=== PATIENT | female | born 1995 | race Caucasian/White ===

== ENCOUNTER → 2019-11-27 13:08 | Outpatient (BNVA) | payer BC, SELFPAY | PROVIDERS: Family Provider Family Medicine; PCP Family Medicine; Visit Provider Obstetrics & Gynecology | DX: Z32.01 Encounter for pregnancy test, result positive (principal) | CPT/HCPCS: 81025 ==

== ENCOUNTER → 2019-12-08 08:09 | Outpatient (BNVA) | payer BC, SELFPAY | PROVIDERS: Family Provider Family Medicine; PCP Family Medicine; Visit Provider Obstetrics & Gynecology | DX: Z36.87 Encounter for antenatal screening for uncertain dates (principal); Z3A.01 Less than 8 weeks gestation of pregnancy | CPT/HCPCS: 76817 ==

== ENCOUNTER → 2019-12-21 11:55 | Outpatient (BNVA) | payer BC, SELFPAY | PROVIDERS: Family Provider Family Medicine; PCP Family Medicine; Visit Provider Nurse Practitioner Women's Health | DX: Z01.89 Encounter for other specified special examinations (principal) | CPT/HCPCS: 84315 ==

== ENCOUNTER → 2020-01-22 15:49 | Outpatient (BNVA) | payer BC, SELFPAY | PROVIDERS: Family Provider Family Medicine; PCP Family Medicine; Visit Provider Obstetrics & Gynecology | DX: Z34.80 Encounter for supervision of other normal pregnancy, unspecified trimester (principal); Z78.9 Other specified health status | CPT/HCPCS: 80053; 80307; 84315; 85027; 86592; 86762; 86787; 86803; 86850; 86900; 87340; 87491; 87591; 87806 ==

== ENCOUNTER → 2020-03-11 14:07 | Outpatient (BNVA) | payer BC, SELFPAY | PROVIDERS: Family Provider Family Medicine; PCP Family Medicine; Visit Provider Obstetrics & Gynecology | DX: Z34.82 Encounter for supervision of other normal pregnancy, second trimester (principal); Z3A.20 20 weeks gestation of pregnancy | CPT/HCPCS: 76805 ==

== ENCOUNTER → 2020-05-02 09:06 | Outpatient (BNVA) | payer OTHER, SELFPAY | PROVIDERS: Family Provider Family Medicine; PCP Family Medicine; Visit Provider Obstetrics & Gynecology | DX: O99.613 Diseases of the digestive system complicating pregnancy, third trimester (principal); K21.9 Gastro-esophageal reflux disease without esophagitis | CPT/HCPCS: 82950; 84315; 85027 ==

== ENCOUNTER → 2020-05-13 08:16 | Outpatient (BNVA) | payer OTHER, SELFPAY | PROVIDERS: Family Provider Family Medicine; PCP Family Medicine; Visit Provider Obstetrics & Gynecology | DX: R73.09 Other abnormal glucose (principal) | CPT/HCPCS: 82951; 82952 ==

== ENCOUNTER → 2020-06-04 11:31 | Outpatient (BNVA) | payer OTHER, SELFPAY | PROVIDERS: Family Provider Family Medicine; PCP Family Medicine; Visit Provider Internal Medicine | DX: Z20.828 Contact with and (suspected) exposure to other viral communicable diseases (principal) | CPT/HCPCS: 87635 ==

== ENCOUNTER → 2020-06-28 14:30 | Outpatient (BNVA) | payer OTHER, SELFPAY | PROVIDERS: Family Provider Family Medicine; PCP Family Medicine; Visit Provider Nurse Practitioner Women's Health | DX: Z34.83 Encounter for supervision of other normal pregnancy, third trimester (principal) | CPT/HCPCS: 84315; 87081 ==

== ENCOUNTER → 2020-07-17 16:23 | Outpatient (BNVA) | payer OTHER, SELFPAY | PROVIDERS: Visit Provider Obstetrics & Gynecology | DX: Z11.59 Encounter for screening for other viral diseases (principal) | CPT/HCPCS: 87635 ==

== ENCOUNTER 2020-08-02 17:49 | Inpatient (IN) | payer OTHER, MEDICAID, SELFPAY ==
[2020-08-02] VITALS (14 sets, daily range): BP systolic 0–124; BP diastolic 0–76; PULSE 76–104; RESP 17–18; TEMP 36.8; BMI 42.7
[2020-08-02] MEDS: dextrose 5%-lactated ringers 1,000 ML 125 ML IV (20:30)
[2020-08-02] MEDS: oxytocin 30 UNIT/500 ML BAG IV (20:30)
[2020-08-02 20:40] LABS: Basophils % 0.2 %; Eosinophils # 0.1 10^3/uL (0.0-0.8); Eosinophils % 0.8 %; Hematocrit 37.6 % (37.0-47.0); Hemoglobin 12.5 g/dL (11.5-15.3); Lymphocytes # 1.9 10^3/uL (0.8-4.8); Lymphocytes % 18.8 %; Mean Corpuscular HGB Conc 33.2 g/dL (30.0-36.0); Mean Corpuscular Hemoglobin 30.9 pg (28.0-34.0); Mean Corpuscular Volume 93.1 fL (81-99); Mean Platelet Volume 12.1 fL (7.4-10.4); Neutrophils # 6.84 10^3/uL (1.8-7.7); Neutrophils % 69.3 %; Nucleated Red Blood Cells % 0 %; Platelet Count 150 10^3/cmm (130-400); Red Blood Count 4.04 10^6/uL (4.1-5.3); Red Cell Distribution Width 15.3 % (12.1-15.1); White Blood Count 9.9 10^3/uL (4.0-10.0)
[2020-08-03] VITALS (61 sets, daily range): BP systolic 0–138; BP diastolic 0–80; PULSE 69–109; RESP 15–16; TEMP 36.6–37
[2020-08-03] MEDS: dextrose 5%-lactated ringers 1,000 ML 125 ML IV ×3 (05:45→23:14)
--- NOTE | 2020-08-03 18:16 | PM.OBGYHP ---
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 Patient presented to L&D in the evening of 08/02 for cervical ripening and induction of labor due to post dates . She denied problems at that time. She was reporting occasional contractions. She denied any leaking of fluid or vaginal bleeding. She was started on low-dose Pitocin which was brought up to 6 milliunits/min and held at that right through the night. This morning, she was continued on increasing dose Pitocin. She reported having mild contractions. She denied bleeding or leaking of fluid. She reported good movement. Review of Systems Const: Denies: fever(s) or chills ENMT: Denies: throat pain or nasal congestion Card: Denies: chest pain, palpitations or lightheadedness Resp: Denies: dyspnea, productive cough, non-productive cough or wheezing GI: Denies: abdominal pain, nausea, vomiting, diarrhea or constipation : Reports: urinary frequency; Denies: dysuria, genital pruritis, vaginal bleeding or vaginal discharge Neuro: Denies: headache(s) or dizziness Psych: Denies: anxiety or depression Medications/Allergies Home Medications Medication Instructions Recorded Confirmed Last Taken Type prenat.vits,varsha,pti-vysy-ugaij 1 tab PO DAILY 11/27/19 08/02/20 Unknown History omeprazole 20 mg capsule,delayed 20 mg PO DAILY cap 05/16/20 08/02/20 Unknown History release ferrous sulfate 325 mg (65 mg 325 mg PO DAILY 05/31/20 08/02/20 Unknown History iron) tablet Allergies Allergy/AdvReac Type Severity Reaction Status Date / Time No Known Allergies Allergy Verified 08/01/20 10:45 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 Performed by Dr. Karlos De Anda at [facility] in [place], [place]. Family History Family/Other Breast cancer Maternal great grandmother Grandfather Diabetes Maternal grandfather Father Hypertension Social History Smoking and tobacco status: never smoked Alcohol intake: never Substance/Drug Use: never Other Female Reproductive History: Hx Age of Menarche: 10 Duration of menses: 6-7 days Date of Last Menstrual Period: 10/18/19 Cycle Length: 28 Menstrual flow: normal/abnormal: normal History History History 3 Term 0 Miscarriages/Ectopic 2 0 Living Children 0 Other History: 1---> 03/2019. Miscarriage at approximately 6 weeks gestation. Had inappropriately changing hCG. Treated by D&C with small amount of placental tissue obtained. 2---> 08/2019. SAB [facility]AM Calculator Estimated Delivery Date Method Current WG Current Estimate 07/24/20 LMP (Certain) 41w 3d Other Estimates 07/28/20 Ultrasound #1 40w 6d Expected Delivery Route/Plan Vaginal delivery Specific Issues/Plans Hx of SAB x 2 GERD-- managed with prilosec Covid testing negative on 06/04/2020 Vitals/I&O/Wt Last Vital Signs Temp 98.1 F 08/03/20 14:30 Pulse 91 08/03/20 16:44 Resp 15 08/03/20 03:00 BP 118/71 08/03/20 16:44 08/03/20 08/03/20 08/03/20 06:59 14:59 22:59 Intake Total 1029.783 / 9243.359 5079.334 / 1083.334 32.083 / 1115.417 Balance 1029.783 / 6878.043 2487.334 / 1083.334 32.083 / 1115.417 Weight last 48 hrs Weight 219 lb Physical Exam Const: COMMON NORMALS: no acute distress, average body habitus, alert and well nourished GENERAL APPEARANCE: well developed ORIENTATION/CONSCIOUSNESS: Yes oriented to person, Yes oriented to place and Yes oriented to time Resp: COMMON NORMALS: normal respiratory effort and clear to auscultation bilaterally AUSCULTATION: clear to auscultation bilaterally Cardio: COMMON NORMALS: regular rate, regular rhythm, No gallops present (Cardio) and No rub (Cardio) RATE: regular rate RHYTHM: regular rhythm GI: COMMON NORMALS: Soft to palpation, non-tender, No hepatosplenomegaly present and no masses (Except for nontender gravid uterus) AUSCULTATION: Yes normoactive bowel sounds PALPATION: Yes Soft to palpation, Yes No hepatosplenomegaly present and No Hernia present : EXTERNAL FEMALE EXAM: No Hernia present Extremity: COMMON NORMALS: no calf tenderness NARRATIVE EXTREMITY EXAM: 1+ lower extremity edema Neuro: SENSORIUM/ORIENTATION: Yes alert, Yes oriented to person, Yes oriented to place and Yes oriented to time Psych: COMMON NORMALS: normal affect MOOD & AFFECT: Yes euthymic mood Data : 08/02/20 20:10 A&P Assessment and plan (1) Supervision of normal : Patient is at 41-3/7 weeks gestation today. She was admitted yesterday evening and started on low-dose Pitocin for cervical ripening. She was started on increasing dosing this morning. By this evening she has made minimal cervical change and is still comfortable. As a result, Pitocin has been stopped. Patient may shower and eat this evening. She will be rechecked afterwards with decision to be made whether to restart Pitocin or potentially look at other cervical ripening methods. This was discussed with the patient and her partner and they were in agreement with this plan of care. Status: Acute Qualifiers: Normal : other normal Trimester: third trimester Qualified Code(s): Z34.83 - Encounter for supervision of other normal , third trimester Attestations Medical Necessity Statement*: Patient being induced for 41+ week . 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
[2020-08-03] MEDS: oxytocin 30 UNIT/500 ML BAG 4 UNIT IV (23:18)
[2020-08-04] VITALS (172 sets, daily range): BP systolic 0–144; BP diastolic 0–95; PULSE 62–140; RESP 14–20; TEMP 36.7–37.5; O2SAT 77–100
[2020-08-04] MEDS: dextrose 5%-lactated ringers 1,000 ML 125 ML IV ×2 (06:10→16:26)
--- NOTE | 2020-08-04 06:56 | PM.PN ---
Subjective Subjective: Interval history: Patient reports she was able to get a little more sleep last night than the night before. She states she feels a little crampy. She denied vaginal bleeding or leaking of fluid. She reports baby has been moving well. Vitals/I&O/Wt Last Vital Signs Temp 98.2 F 08/04/20 05:53 Pulse 75 08/04/20 06:39 Resp 14 08/04/20 05:53 BP 115/71 08/04/20 06:39 Pulse Ox 95 08/04/20 06:47 08/03/20 08/03/20 08/04/20 14:59 22:59 05:59 Intake Total 1083.334 / 2495.078 0308.083 / 2118.417 1017.367 / 2144.117 Balance 1083.334 / 1341.930 3357.083 / 2118.417 1017.367 / 2144.117 Weight last 48 hrs Weight 219 lb Physical Exam Const: COMMON NORMALS: no acute distress, average body habitus, alert and well nourished GENERAL APPEARANCE: well developed ORIENTATION/CONSCIOUSNESS: Yes oriented to person, Yes oriented to place and Yes oriented to time GI: COMMON NORMALS: Soft to palpation, non-tender, No hepatosplenomegaly present and no masses (Except for gravid uterus) INSPECTION: Yes gravid abdomen AUSCULTATION: Yes normoactive bowel sounds PALPATION: Yes Soft to palpation, Yes No hepatosplenomegaly present and No Hernia present : EXTERNAL FEMALE EXAM: No Hernia present OTHER: External genitalia: Normal in appearance with no lesions seen. Anus/perineum: No perineal lesions noted. Urethral meatus: Normal in size and location with no lesions or prolapse noted Urethra: Nontender with no palpable masses noted. Bladder: Nontender with no palpable masses noted. Vagina: No palpable masses noted. Cervix: 90% effaced, 4 cm dilated, -2 station, soft, mid position. Head well applied to cervix. Artificial rupture of membranes performed with clear fluid present.. Uterus: Gravid and nontender. Extremity: COMMON NORMALS: no calf tenderness Neuro: SENSORIUM/ORIENTATION: Yes alert, Yes oriented to person, Yes oriented to place and Yes oriented to time Psych: COMMON NORMALS: normal affect MOOD & AFFECT: Yes euthymic mood Data : 10/30/20 20:10 A&P Assessment and plan (1) Supervision of normal : Patient is 41-4/7 weeks gestation today. Patient was restarted on steady level low-dose Pitocin through the night. At this point, head is well applied to the cervix and she is 90% effaced and 4 cm dilated. Artificial rupture membranes was performed with clear fluid present. Plan to start increasing Pitocin dose for induction again. 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
[2020-08-04] MEDS: ondansetron 2 mg/ML SDV 2 mL 4 MG IVP (09:13)
[2020-08-04] MEDS: lactated ringers 1,000 ML 999 ML IV ×2 (09:19→18:09)
--- NOTE | 2020-08-04 10:23 | P.ANESASSM_ITS ---
Pre-Anesthetic Assessment Pre-Anesthetic Assessment: Height/Weight: Height 1.52 m Weight 99.337 kg Temp Pulse Resp BP Pulse Ox 98.2 F 92 16 91/68 95 08/04/20 09:06 08/04/20 09:57 08/04/20 09:06 08/04/20 09:57 08/04/20 06:47 Preop Diagnosis: labor pain Proposed Procedure: epidural Was Beta Jane taken within 24 hours: N/A Social: Social History: No alcohol and No tobacco Exam: Pre-Anes Outpt Exam: alert, oriented x 3, clear to auscultation bilaterally and regular rate & rhythm Airway: Submandibular: WNL Cervical ROM: WNL MP: 2 Dentition: Full Pulmonary: Pulmonary: None reported CV/HEM: CV/HEM: None reported : : None reported Hepatic: Hepatic: None reported GI: GI: GERD Metabolic: Metabolic: Morbid obesity Musc/skel: Musc/skel: None reported Neuropsych: Neuropsych: Seizure (last known 2007) Anesthetic Plan: ASA status: 2 Anesthesia: Eval. for regional block and Regional (specify below) Risk of > 500 ml blood loss (7ml/kg in children): No Meds/Allergies Current Medications: Current Medications Generic Name Dose Route Start Last Admin Trade Name Freq PRN Reason Stop Dose Admin Oxytocin 30 unit in 500 ml s @ 1 mls/hr 08/02/20 19:00 08/04/20 02:00 Pitocin IV 6 milliunit/min .Q24H JACQUES 6 mls/hr Titration Protocol 1 MILLIUNIT/MIN Dextrose/Lactated Ringer's 1,000 mls @ 125 m ls/hr 08/02/20 19:00 08/04/20 06:10 Dextrose 5%-Lact ated Ringers IV 125 mls/hr .Q8H JACQUES Administration Lactated Ringer's 1,000 mls @ 999 m ls/hr 08/04/20 09:11 08/04/20 09:19 Lactated Ringers IV 999 mls/hr .Q1H1M PRN Administration See label comment s Ondansetron HCl 4 mg 08/02/20 18:49 08/04/20 09:13 Zofran IVP 4 mg Q4H PRN Administration NAUSEA AND VOMITI NG PFSH Anesthesia PFSH: Medical History Depression 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 Performed by Dr. Karlos De Anda at [facility] in [place], [place]. Family History Family/Other Breast cancer Maternal great grandmother Grandfather Diabetes Maternal grandfather Father Hypertension Social History Smoking and tobacco status: never smoked Alcohol intake: never Substance/Drug Use: never Female Reproductive History: : 3 Data Anesthesia CBC & Chem 7: 08/02/20 20:10 Other Labs: Laboratory Results - last 48 hr 08/02/20 20:10 WBC 9.9 RBC 4.04 L Hgb 12.5 Hct 37.6 MCV 93.1 MCH 30.9 MCHC 33.2 RDW 15.3 H Plt Count 150 MPV 12.1 H Neut % (Auto) 69.3 Lymph % (Auto) 18.8 Union % (Auto) 10.0 Eos % (Auto) 0.8 Baso % (Auto) 0.2 Neut # (Auto) 6.84 Lymph # (Auto) 1.9 Union # (Auto) 1.0 H Eos # (Auto) 0.1 Baso # (Auto) 0.0 Nucleated RBC % (auto) 0 Nucleated RBCs # 0.0 Cardiac Studies: No Data to Display
--- NOTE | 2020-08-04 10:55 | ANES.PROC ---
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, vitals taken during procedure using OBIX system and satisfactory throughout, patient admits to decrease pain, report of procedure to OB RN Epidural: Time Out Performed: Yes Consents Signed: Procedure Consent Consent: requested by attending/covering physician, from patient, risks and benefits reviewed and patient agrees to proceed Lumbar Level: L3-L4 Epidural position: sitting Epidural procedure: sterile prep of area, 1% lidocaine to numb the area (3 mL), 18 g needle, negative for paresthesia passed, neg for paresthesia, test dose given, 1.5% xylocaine 1:200k epi (5 mL), 0.2% Ropivacaine bolus ml (5 mL), placed PCEA, no systemic response, sterile dressing applied, L.U.D. no apparent complications and 0.2% Ropiavacaine @ mls/hr (13 mL/hr)
[2020-08-04] MEDS: metoclopramide 5 mg/mL SDV 2 mL 10 MG IVP (18:10)
[2020-08-04] MEDS: famotidine 20 mg/2 mL INJ IVP (18:10)
[2020-08-04] MEDS: citric acid-sodium citrate 30 mL UDC PO (18:10)
[2020-08-04] MEDS: methylergonovine 0.2 mg/mL INJ 1 mL IM (18:54)
--- NOTE | 2020-08-04 19:44 | PM.OP ---
Operative Report Date of procedure: August 04, 2020 Pre-op Diagnosis: 1. Arrest of dilation. 2. at 41-4/7 weeks gestation 3. Meconium fluid Post-op Diagnosis: 1. Cephalopelvic disproportion with contracted inlet 2. at 41-4/7 weeks gestation 3. hemorrhage due to uterine atony. 4. Meconium fluid 5. Viable male . 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 Viable male , cephalic presentation, weight 8 lbs 12 oz (3970 g), length 21 inches, Apgars 9 at 1 minute and 9 at 5 minutes. 2. Thick meconium fluid. 3. Contracted pelvic inlet. 4. Normal-appearing uterus, tubes, and ovaries. Brief History: Patient is a 25-year-old white female 3, para 0-0-2-0 with an LMP of 10/18/2019 and an EDC of 07/24/2020 based on LMP and consistent with a 6-week ultrasound, which placed her at 41-2/7 weeks gestation at the time of admission. Patient presented to L&D in the evening of 08/02 for cervical ripening and induction of labor. She had a semifavorable cervix and was started on a low dose Pitocin which was brought up to 6 milliunits/min and continued through the evening and night. The next morning, 08/03, she was started on an increasing dose of Pitocin. This was continued through the day. By the evening, she had made minimal cervical change and Pitocin was stopped. She was allowed to eat at that time and ambulate. Approximately 2 hours later she was started back on a low dose Pitocin which was held at 6 milliunits/min for cervical ripening again through the night. By the following morning, 08/04, she had made cervical change and the baby's head was well applied to the cervix. Artificial rupture membranes was performed that morning with a small amount of clear fluid. By a few hours later, meconium fluid was definitely present. She was started on increasing dose of Pitocin and developed regular contraction pattern. She became more uncomfortable and had epidural placed by late morning. She continued to progress and was found to be an anterior lip by 17:00. By 18:45, she was still an anterior lip with development of caput with minimal descent of the bony structure of the head. As a result after discussion with the patient, decision was made to proceed with a section for arrest of dilation and suspected cephalopelvic disproportion. Procedure: Patient was taken to the operating room where epidural was further dosed. She was prepped and draped in the usual sterile fashion in a dorsal supine position with a leftward tilt. Hall catheter and sequential compression boots had been placed prior to starting the case. A Pfannenstiel skin incision was made with a knife and carried down to the underlying fascia with the knife. Fascia was incised in the midline with the knife and extended laterally with Fernandes scissors. Superior aspect of the fascia was grasped with Sully clamps, elevated, and sharply and bluntly dissected. The inferior aspect of the fascia was grasped with Sully clamps, elevated, and sharply and bluntly dissected. The rectus muscles were in the midline. Peritoneum was sharply entered. Peritoneal incision was extended both superiorly and inferiorly with good visualization of the bladder. Bladder blade was inserted. The vesicouterine peritoneum was tented up and sharply entered. It was extended laterally and the bladder flap was created digitally. Bladder blade was reinserted. A transverse incision was made with the knife in the lower uterine segment. Meconium fluid was obtained upon entry into the uterine cavity. The infant's head was delivered and one loop of shoulder cord was noted. The rest of the infant delivered atraumatically. Nose and mouth were suctioned with bulb suction. Cord was clamped and cut and the was handed off to Dr. George and the waiting nurses. Cord blood was obtained. Placenta was delivered via uterine massage. Patient received 20 units of Pitocin in the IV fluids. The uterus remained very boggy with significant bleeding present. She was given 10 units of Pitocin intrauterine and continued to have a boggy uterus. She then received 0.2 mg of Methergine IM. She was also started on tranexamic acid 1000 mg IV. Following the Methergine, the uterus started to firm and bleeding slowed. The uterus was exteriorized and cleared of clots and debris. The uterine incision was closed in a running locking fashion using 0 Vicryl suture. The incision was imbricated using 0 Vicryl suture in a horizontal mattress fashion. The incision was inspected and noted to be hemostatic. Posterior cul-de-sac was thoroughly irrigated and cleared of clots and blood. The uterus was returned to the abdomen. The uterine incision was irrigated and noted to be hemostatic. The gutters were cleared of clots and blood. The rectus muscles and peritoneum were reapproximated in the midline using interrupted stitches of 2-0 Vicryl suture. The muscle layer was irrigated and noted to be hemostatic. The fascia was reapproximated using 0 Vicryl suture in a running fashion. The subcutaneous layer was irrigated and brought to hemostasis using electrocautery. It was reapproximated using 3-0 plain suture in an interrupted fashion. Skin was reapproximated using 4-0 Vicryl suture in a subcuticular fashion. Steri-Strips were applied. Patient tolerated the procedures well. Sponge, needle, and instrument counts were correct. DRAINS: Hall catheter POSTOPERATIVE STATUS: The patient was left to recover in satisfactory condition
--- NOTE | 2020-08-04 19:53 | PM.PACU ---
PACU note PACU note: patient doing well. VSS, good respiratory effort, report to OB RN Post-Anesthesia Exam: awake Disposition: admitted
[2020-08-05] MEDS: sodium chloride 0.9% 500 ML 999 ML IV (00:46)
[2020-08-05 01:30] VITALS: BP 92/52; PULSE 100; RESP 16; TEMP 36.9; O2SAT 96
[2020-08-05] MEDS: ketorolac 30 mg/mL INJ IVP (02:35)
[2020-08-05 03:09] VITALS: BP 94/61; PULSE 103; RESP 18; O2SAT 96
[2020-08-05] MEDS: dextrose 5%-lactated ringers 1,000 ML 125 ML IV (03:50)
[2020-08-05 05:20] VITALS: BP 94/65; PULSE 108; RESP 17; TEMP 37; O2SAT 97
--- NOTE | 2020-08-05 05:20 | PC.NURSE ---
Patient up to chair withy standby assist from this nurse. Tolerates activity well. AR RN
[2020-08-05 09:28] LABS: Hematocrit 25.4 % (37.0-47.0); Hemoglobin 8.2 g/dL (11.5-15.3); Mean Corpuscular HGB Conc 32.3 g/dL (30.0-36.0); Mean Corpuscular Hemoglobin 31.4 pg (28.0-34.0); Mean Corpuscular Volume 97.3 fL (81-99); Mean Platelet Volume 11.9 fL (7.4-10.4); Platelet Count 148 10^3/cmm (130-400); Red Blood Count 2.61 10^6/uL (4.1-5.3); Red Cell Distribution Width 15.7 % (12.1-15.1); White Blood Count 19.1 10^3/uL (4.0-10.0)
[2020-08-05 10:45] VITALS: BP 92/61; PULSE 116; RESP 20; TEMP 36.9; O2SAT 100
--- NOTE | 2020-08-05 13:07 | ANE.PACU2 ---
Inpatient post-anesthesia follow up: Airway intact: Yes Vital signs: Temperature 98.6 F Pulse Rate 108 Respiratory Rate 17 Blood Pressure 94/65 Pulse Oximetry 97 Oxygen Delivery Me thod Room Air Oxygen Flow Rate Fraction of Inspir ed Oxygen Hydration adequate: Yes Nausea and vomiting: No Pain level: 3 Mental status: Baseline Additional Comments: No signs of infection at epidural site, no numbness/weakness in legs, up and walking slowly, no headaches, urinating without saunders
[2020-08-05] MEDS: ibuprofen 800 mg tablet PO (14:07)
[2020-08-05 16:30] VITALS: BP 98/65; PULSE 112; RESP 18; TEMP 36.9; O2SAT 98
--- NOTE | 2020-08-05 18:44 | P.PN_ITS ---
Subjective Subjective: Interval history: Reports doing well overall. States has been having more pain as the afternoon progresses. However she states she has not been taking any pain medication other than ibuprofen. She denied shortness of breath or chest pains. She reports mild lightheadedness with getting up out of bed. She denied nausea or vomiting and is tolerating clear liquids. She denied passing flatus. She denies any problems with urination. Vitals/I&O/Wt Last Vital Signs Temp 98.4 F 08/05/20 16:30 Pulse 112 H 08/05/20 16:30 Resp 18 08/05/20 16:30 BP 98/65 08/05/20 16:30 Pulse Ox 98 08/05/20 16:30 08/05/20 08/05/20 08/05/20 06:59 14:59 22:59 Intake Total 1500 / 6835.234 Output Total 2014 725 / 725 1200 / 1925 Balance 1385 / 4820.234 -725 / -725 -1200 / -1925 Physical Exam Const: COMMON NORMALS: no acute distress, average body habitus, alert and well nourished GENERAL APPEARANCE: well developed ORIENTATION/CONSCIOUSNESS: Yes oriented to person, Yes oriented to place and Yes oriented to time Resp: COMMON NORMALS: normal respiratory effort and clear to auscultation bilaterally AUSCULTATION: clear to auscultation bilaterally Cardio: COMMON NORMALS: regular rate, regular rhythm, No gallops present (Cardio) and No rub (Cardio) RATE: regular rate RHYTHM: regular rhythm GI: COMMON NORMALS: Soft to palpation, No hepatosplenomegaly present and no masses (Except for uterus) AUSCULTATION: Yes normoactive bowel sounds PALPATION: Yes Soft to palpation, Yes Tenderness to palpation present (GI) (Tender in the lower abdomen), Yes No hepatosplenomegaly present and No Hernia present : EXTERNAL FEMALE EXAM: No Hernia present Extremity: COMMON NORMALS: no calf tenderness NARRATIVE EXTREMITY EXAM: 1- 2+ lower extremity edema Neuro: SENSORIUM/ORIENTATION: Yes alert, Yes oriented to person, Yes oriented to place and Yes oriented to time Psych: COMMON NORMALS: normal affect MOOD & AFFECT: Yes euthymic mood Urinary Catheter Management^: Hall Latex: Cath Placed During This Visit: yes, but has since been removed by the nurse Reason for Continuing Indwelling Catheter: Decision to DC Catheter Urinary Catheter Date of Insertion: 08/04/20 Urinary Catheter Time of Insertion: 11:27 Date Urinary Catheter Removed: 08/05/20 Time Urinary Catheter Discontinued: 09:45 Data : 08/05/20 08:55 A&P Assessment and plan (1) Cephalopelvic disproportion due to inlet contraction of pelvis: Postoperative day 1, status post primary section for CPD. Patient is doing well overall. Duramorph has essentially worn off. Discussed with patient the importance of taking pain medication when needed rather than just sitting around in pain. Continued clear liquids at this time until she is passing flatus. May increase activities as tolerated. May shower. Status: Acute (2) Acute blood loss anemia: Patient had significant blood loss due to uterine atony during her C- section. She has dropped over 4 g from her admission hemoglobin to hemoglobin this morning. She is mildly tachycardic and is reporting some mild lightheadedness at times. After discussion with the patient, depending upon how she does with the walking, she may require transfusion of blood. Patient is in agreement with this if necessary. Status: Acute Attestations Medical Necessity Statement*: Patient is < 24 hour post section. 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
[2020-08-05] MEDS: docusate sodium 100 mg Capsule PO (18:48)
[2020-08-05 21:44] VITALS: BP 96/59; PULSE 106; RESP 16; TEMP 36.9; O2SAT 98
--- NOTE | 2020-08-06 01:58 | PC.NURSE ---
patient to nursery to see .
[2020-08-06 04:00] VITALS: BP 98/60; PULSE 102; RESP 16; TEMP 36.9; O2SAT 98
--- NOTE | 2020-08-06 05:13 | PC.NURSE ---
patient to nursery to feed
[2020-08-06] MEDS: ibuprofen 800 mg tablet PO ×3 (09:04→21:16)
[2020-08-06] MEDS: HYDROcodone-acetaminophen 5-325 mg Tablet PO (09:04)
[2020-08-06] MEDS: docusate sodium 100 mg Capsule PO ×2 (09:04→17:30)
[2020-08-06] MEDS: prenatal vitamin Capsule 1 CAP PO (09:04)
--- NOTE | 2020-08-06 10:23 | PM.PN ---
Subjective Subjective: Interval history: Patient without complaints this morning. She reports that her pain has been controlled with the pills. She denies lightheadedness or dizziness with ambulation. She denies shortness of breath or chest pains. She reports tolerating clear liquids without nausea or vomiting. She states she is not passing flatus. She denies problems with urination. She reports that her bleeding has slowed. Vitals/I&O/Wt Last Vital Signs Temp 98.4 F 08/06/20 04:00 Pulse 102 H 08/06/20 04:00 Resp 16 08/06/20 04:00 BP 98/60 08/06/20 04:00 Pulse Ox 98 08/06/20 04:00 08/05/20 08/06/20 08/06/20 22:59 06:59 14:59 Output Total 1199 / 1925 Balance -1200 / -1925 Physical Exam Const: COMMON NORMALS: no acute distress, average body habitus, alert and well nourished GENERAL APPEARANCE: well developed ORIENTATION/CONSCIOUSNESS: Yes oriented to person, Yes oriented to place and Yes oriented to time Resp: COMMON NORMALS: normal respiratory effort and clear to auscultation bilaterally AUSCULTATION: clear to auscultation bilaterally Cardio: COMMON NORMALS: regular rate, regular rhythm, No gallops present (Cardio) and No rub (Cardio) RATE: regular rate RHYTHM: regular rhythm GI: COMMON NORMALS: Soft to palpation, No hepatosplenomegaly present and no masses (Except for uterus) INSPECTION: Yes incision (Dressing present and dry.) AUSCULTATION: Yes normoactive bowel sounds PALPATION: Yes Soft to palpation, Yes Tenderness to palpation present (GI) (Lower abdomen.), Yes No hepatosplenomegaly present and No Hernia present : EXTERNAL FEMALE EXAM: No Hernia present Extremity: COMMON NORMALS: no calf tenderness NARRATIVE EXTREMITY EXAM: 1-2+ lower extremity edema Neuro: SENSORIUM/ORIENTATION: Yes alert, Yes oriented to person, Yes oriented to place and Yes oriented to time Psych: COMMON NORMALS: normal affect MOOD & AFFECT: Yes euthymic mood Urinary Catheter Management^: Hall Latex: Cath Placed During This Visit: yes, but has since been removed by the nurse Reason for Continuing Indwelling Catheter: Decision to DC Catheter Urinary Catheter Date of Insertion: 08/04/20 Urinary Catheter Time of Insertion: 11:27 Date Urinary Catheter Removed: 11/02/20 Time Urinary Catheter Discontinued: 09:45 Data : 08/05/20 08:55 A&P Assessment and plan (1) Cephalopelvic disproportion due to inlet contraction of pelvis: Postoperative day 2, status post primary section. Pain is currently controlled with oral medications. Patient has still not passed flatus and is only taking clear liquids. She will not be discharged until she is tolerating a regular diet. When she starts passing flatus, then the diet will be advanced. Activities were encouraged. Patient may shower. Status: Acute (2) Acute blood loss anemia: Patient had been noted to be anemic yesterday on her post procedure hemogram. She was asymptomatic today. I discussed with the patient and her partner that as a result of this, she most likely will not need blood transfusion. However, she will need to continue iron at home. Status: Acute Attestations Medical Necessity Statement*: Patient is still not passing flatus and is only taking clear liquids. 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
[2020-08-06 11:14] VITALS: BP 100/63; PULSE 110; RESP 18; TEMP 36.6; O2SAT 97
[2020-08-06 16:18] VITALS: BP 107/64; PULSE 124; RESP 18; TEMP 36.6; O2SAT 97
[2020-08-06 23:34] VITALS: BP 103/64; PULSE 122; RESP 14; TEMP 37.2; O2SAT 100
[2020-08-07 05:00] VITALS: BP 92/58; PULSE 94; RESP 16; O2SAT 98
[2020-08-07] MEDS: docusate sodium 100 mg Capsule PO (08:59)
[2020-08-07] MEDS: ibuprofen 800 mg tablet PO (08:59)
[2020-08-07] MEDS: prenatal vitamin Capsule 1 CAP PO (08:59)
[2020-08-07] MEDS: HYDROcodone-acetaminophen 5-325 mg Tablet PO (09:03)
--- NOTE | 2020-08-07 09:34 | PM.OBGYDC ---
Discharge Providers SENIOR BUSINESS INTELLIGENCE ANALYST Date of Admission: 08/02/20 17:49 Date of Discharge: 08/07/20 Attending Provider at Admission: Karlos De Anda MD Attending Provider at Discharge: Karlos De Anda MD Diagnoses at Discharge Discharge Diagnosis (1) Cephalopelvic disproportion due to inlet contraction of pelvis: Status: Resolved (2) Acute blood loss anemia: Status: Acute Reason for Visit Reason for Visit: induction Hospital Course Hospital Course Patient is a 25-year-old white female 3, para 0-0-2-0 with an LMP of 10/18/2019 and an EDC of 07/24/2020 based on LMP and consistent with a 6-week ultrasound. This placed her at 41-2/7 weeks gestation at the time of admission. She presented to labor and delivery in the evening of 08/02 for cervical ripening and induction of labor due to post term . She was started on a low-dose Pitocin which was brought up to 6 milliunits/min and continued through the evening and night. By the morning of 08/03 she was switched to an increasing dose Pitocin which was continued through the day. By the evening she had made minimal cervical change and Pitocin was stopped. She was then restarted after a few hours on the low dose Pitocin which was again brought up to 6 milliunits/min and continued through the second night. By the following morning, 08/04, she had made cervical change in the baby's head was well applied to the cervix. Artificial rupture membranes was performed at the time. She progressed to an anterior lip by 17:00 but never progressed past that point. As a result, she was taken for a primary section for arrest of dilation and suspected cephalopelvic disproportion. She had a primary low transverse section performed with the delivery of a viable male infant weighing 8 lbs 12 oz (3970 g) with a length of 21 inches and Apgars of 9 at 1 minute 9 at 5 minutes. She was noted to have a contracted pelvic inlet during the section. Day 1 Patient reported doing well. Her pain had initially been controlled with Duramorph, but had increased as the afternoon progressed. She was not taking medication other than her scheduled ibuprofen. She denied shortness of breath or chest pains. She was reporting mild lightheadedness with getting up out of bed. She denied nausea or vomiting. She was tolerating clear liquids. She was not passing flatus. She was urinating without difficulty. She was noted to be anemic and had dropped 4 g and her hemoglobin compared to her admission CBC. Activities were increased to see if she would require blood transfusion or not. She did well with the increased activities and decision was made that she would not need a transfusion. day 2. Patient is doing well. Reports tolerating a regular diet without nausea or vomiting. Denies lightheadedness or dizziness with ambulation. Denies shortness of breath or chest pains. Denies problems with urination. Reports passing flatus. Reports bleeding has slowed. She is . Physical exam: See below. Plan Discharge to home. Discharge instructions discussed with patient. Patient is to follow-up in my office in 2 and 6 weeks following discharge. Information Peripartum Data: Infant Delivery Method: Section Physical Exam Const: COMMON NORMALS: no acute distress, average body habitus, alert and well nourished GENERAL APPEARANCE: well developed ORIENTATION/CONSCIOUSNESS: Yes oriented to person, Yes oriented to place and Yes oriented to time Resp: COMMON NORMALS: normal respiratory effort and clear to auscultation bilaterally AUSCULTATION: clear to auscultation bilaterally Cardio: COMMON NORMALS: regular rate, regular rhythm, No gallops present (Cardio) and No rub (Cardio) RATE: regular rate RHYTHM: regular rhythm GI: COMMON NORMALS: Soft to palpation, No hepatosplenomegaly present and no masses (Except for uterus.) INSPECTION: Yes incision (Clean, dry, intact with steri-strips present) AUSCULTATION: Yes normoactive bowel sounds PALPATION: Yes Soft to palpation, Yes Tenderness to palpation present (GI) (Lower abdomen), Yes No hepatosplenomegaly present and No Hernia present : EXTERNAL FEMALE EXAM: No Hernia present Extremity: COMMON NORMALS: no calf tenderness NARRATIVE EXTREMITY EXAM: 2+ lower extremetiy edema bilaterally Neuro: SENSORIUM/ORIENTATION: Yes alert, Yes oriented to person, Yes oriented to place and Yes oriented to time Psych: COMMON NORMALS: normal affect MOOD & AFFECT: Yes euthymic mood Urinary Catheter Management^: Hall Latex: Cath Placed During This Visit: yes, but has since been removed by the nurse Reason for Continuing Indwelling Catheter: Decision to DC Catheter Urinary Catheter Date of Insertion: 08/04/20 Urinary Catheter Time of Insertion: 11:27 Date Urinary Catheter Removed: 08/05/20 Time Urinary Catheter Discontinued: 09:45 Discharge Data Vitals: Last Vital Signs Temp 98.9 F 08/06/20 23:34 Pulse 94 08/07/20 05:00 Resp 16 08/07/20 05:00 BP 92/58 08/07/20 05:00 Pulse Ox 98 08/07/20 05:00 Discharge Plan Discharge Patient Disposition: Home Condition: Stable Prescriptions: New hydrocodone-acetaminophen 5-325 mg Tablet 1 - 2 tab PO Q6H PRN (Reason: Moderate To Severe Pain) Qty: 30 RF: 0 ibuprofen 800 mg Tablet 800 mg PO TID PRN (Reason: pain) Qty: 40 RF: 0 Continued prenat.vits,varsha,[id number] Tablet 1 tab PO DAILY RF: 0 Changed FeroSul 325 mg (65 mg iron) tablet 325 mg PO BID Qty: 0 RF: 0 Discontinued omeprazole 20 mg capsule,delayed release(DR/EC) 20 mg PO DAILY RF: 0 Discharge Orders: Discharge Order (Routine); Ordered 08/07/20 Ordered By: Karlos De Anda Referrals: Karlos De Anda MD [Physician] - 08/19/20 11:30 am (* Your 2 week incision check is with Dr. 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
[2020-08-07 09:55] VITALS: BP 104/71; PULSE 108; RESP 18; TEMP 36.7; O2SAT 98
[2020-08-07 13:14] VITALS: BP 116/66; PULSE 109; RESP 18; TEMP 36.7; O2SAT 99
== END 2020-08-07 14:20 | disposition home or self-care (01) | DRG 787 ==
LOC: OPOB 18:06 → OBGYN 08-03 01:15 → OPOB 08-05 09:00
PROVIDERS: Admitting Provider Obstetrics & Gynecology; Visit Provider Obstetrics & Gynecology
PROC: 10D00Z1 Extraction of Products of Conception, Low, Open Approach (ICD-10-PCS; CPT 59514; principal; 2020-08-04 18:30)
DX: O33.9 Maternal care for disproportion, unspecified (principal); O72.1 Other immediate postpartum hemorrhage; O48.0 Post-term pregnancy; Z3A.41 41 weeks gestation of pregnancy; O99.344 Other mental disorders complicating childbirth; F32.9 Major depressive disorder, single episode, unspecified; O77.0 Labor and delivery complicated by meconium in amniotic fluid; O69.2XX0 Labor and delivery complicated by other cord entanglement, with compression, not applicable or unspecified; O99.214 Obesity complicating childbirth; E66.01 Morbid (severe) obesity due to excess calories; Z37.0 Single live birth
CPT/HCPCS: 12345; 36415; 51702; 59025; 59409; 85025; 85027; 96372; 96375; 98960; J0690; J1885; J2210; J2274; J2405; J2765; J2795; J3010; J3490; J7030; J7040

== ENCOUNTER → 2020-09-16 14:25 | Outpatient (BNVA) | payer OTHER, MEDICAID, SELFPAY | PROVIDERS: Visit Provider Obstetrics & Gynecology | DX: D62 Acute posthemorrhagic anemia (principal) | CPT/HCPCS: 85027 ==

== ENCOUNTER → 2022-12-07 09:00 | Outpatient (BNVA) | payer MEDICAID, SELFPAY | PROVIDERS: Visit Provider Obstetrics & Gynecology | DX: Z01.419 Encounter for gynecological examination (general) (routine) without abnormal findings (principal) | CPT/HCPCS: 88175 ==

== ENCOUNTER 2024-01-18 05:14 | Inpatient (IN) | payer MEDICAID, SELFPAY ==
--- NOTE | 2024-01-14 12:27 | ANES.PREANE2 ---
Pre-Anesthetic Assessment Height/Weight: Height 1.52 m Familial anesthetic complications: None Social No alcohol and No tobacco Neuropsych childhood epilepsy Anesthetic Plan ASA status: 2 Anesthesia: Regional (specify below) Risk of > 500 ml blood loss (7ml/kg in children): Yes, adequate IV access and fluids planned Medications/Allergies Home Medications Medication Instructions Recorded Confirmed Last Taken Type escitalopram oxalate 10 mg tablet 10 mg PO DAILY 12/07/22 12/07/22 Unknown History famotidine 20 mg tablet 20 mg PO DAILY 12/07/22 12/07/22 Unknown History phentermine 30 mg capsule 30 mg PO DAILY 12/07/22 12/07/22 Unknown History Allergies Allergy/AdvReac Type Severity Reaction Status Date / Time No Known Allergies Allergy Verified 12/07/22 09:06 [facility] Anesthesia Medical History Depression 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 Performed by Dr. Karlos De Anda at [facility] in [place], [place]. S/P primary low transverse (08/04/20) DX: CPD with contracted inlet. Performed by Dr. De Anda at [facility] in [place], [place]. Confirmed low transverse incision with 2 layer closure Family History Family/Other Breast cancer Maternal great grandmother, 80's Grandfather Diabetes Maternal grandfather Father Hypertension Denies family history of Colon cancer Ovarian cancer Clotting disorder Heart disease Hyperlipidemia Anesthesia complication Bleeding disorder Uterine cancer Thyroid condition Stroke Social History Substance/Drug Use: never Data Anesthesia Cardiac Studies: No Data to Display
[2024-01-18] VITALS (142 sets, daily range): BP systolic 74–112; BP diastolic 45–72; PULSE 51–106; RESP 15–18; TEMP 36.6–37; O2SAT 93–100; BMI 41.2
[2024-01-18 05:56] LABS: Basophils % 0.3 %; Eosinophils % 0.3 %; Hematocrit 30.1 % (36-47); Lymphocytes # 2.1 10^3/uL (0.8-4.8); Lymphocytes % 21.2 %; Mean Corpuscular HGB Conc 31.2 g/dL (30-55); Mean Corpuscular Volume 83.4 fl (85-98); Mean Platelet Volume 11.4 fL (7.4-10.4); Monocytes # 0.8 10^3/uL (0.2-0.9); Monocytes % 7.7 %; Neutrophils # 6.89 10^3/uL (1.8-7.7); Neutrophils % 69.6 %; Nucleated Red Blood Cells % 0 %; Platelet Count 186 10^3/cmm (157-399); Red Blood Count 3.61 10^6/uL (3.85-5.65); Red Cell Distribution Width 14.3 % (12.1-15.1)
[2024-01-18] MEDS: lactated ringers 1,000 ML 999 ML IV (06:22)
[2024-01-18] MEDS: ceFAZolin 2,000 MG in sodium chloride 0.9% (plus) 50 ML 100 MG IV (06:23)
--- NOTE | 2024-01-18 06:34 | PM.OBGYHP ---
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 The patient has had an unremarkable . Her lab work has been unremarkable. Her blood type is a positive. Her antibody screen was negative. She passed her glucose screen. She is rubella immune. She is GBS negative. The remainder of her infectious disease profile is within normal limits. Present Details : 4 Para: 1 Labs Rubella: Immune GBS: Negative Review of Systems General: Reports: 10 or more systems reviewed and unremarkable except in HPI and below Const: Reports: fatigue; Denies: fever(s) Eyes: Denies: change in vision Card: Denies: chest pain Musc: Reports: back pain Rickie/Lymph: Denies: easy bruising Medications/Allergies Home Medications Medication Instructions Recorded Confirmed Last Taken Type PNV #[id number] acid-dha 1 cap PO 1XD 01/18/24 01/18/24 01/17/24 History 0800 Allergies Allergy/AdvReac Type Severity Reaction Status Date / Time No Known Allergies Allergy Verified 01/18/24 06:10 PFSH PHYSICAL EDUCATION PROFESSOR PFSH: Medical History 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 Performed by Dr. De Anda at [facility] in [place], [place] Confirmed low transverse incision with 2 layer closure H/O dilation and curettage (03/28/19) Miscarriage at approximately 6 weeks gestation. Performed by Dr. Karlos De Anda at [facility] in [place], [place]. Family History Family/Other Breast cancer Maternal great grandmother, 80's Grandfather Diabetes Maternal grandfather Father Hypertension Denies family history of Colon cancer Ovarian cancer Clotting disorder Heart disease Hyperlipidemia Anesthesia complication Bleeding disorder Uterine cancer Thyroid disease Stroke Social History Substance/Drug Use: never Other Female Reproductive History: Hx Age of Menarche: 10 History History History 3 Term 1 0 Miscarriages/Ectopic 2 Living Children 1 Vitals/I&O/Wt Last Vital Signs Temp 98.6 F 01/18/24 05:22 Pulse 78 01/18/24 05:44 Resp 18 01/18/24 05:22 BP 103/58 01/18/24 05:44 O2 Del Method Room Air 01/18/24 05:26 Weight last 48 hrs Weight 211 lb Physical Exam Const: COMMON NORMALS: patient oriented x3 and alert HENMT: COMMON NORMALS: moist oral mucous membranes HEAD & SCALP: normal to inspection Chest: COMMONS NORMALS: normal inspection of the chest Resp: COMMON NORMALS: clear to auscultation bilaterally AUSCULTATION: clear to auscultation bilaterally Cardio: COMMON NORMALS: regular rate and regular rhythm RATE: regular rate RHYTHM: regular rhythm GI: INSPECTION: Yes normal to inspection and Yes other (Gravid) Extremity: COMMON NORMALS: normal to inspection GENERAL: Yes edema (Trace) Neuro: COMMON NORMALS: patient oriented x3, moves all extremities and no sensory deficits noted SENSORIUM/ORIENTATION: Yes alert Psych: COMMON NORMALS: mental status grossly normal Skin: COMMON NORMALS: no rashes or lesions noted GENERAL SKIN EXAM: no rashes or lesions noted Data 01/18/24 05:45 Results Labs OB ([facility]): Obstetrics US 11/01/23 Blood Type A Positive 01/22/20 Antibody Screen Negative 01/22/20 Hct 30.1 % (36-47) L 01/18/24 Hgb 9.40 g/dL (11.27-16.99) L 01/18/24 Rho(D) Type Positive 01/22/20 Plt Count 186 10^3/cmm (157-399) 01/18/24 Hep Bs Antigen Non-reactive (Nonreactive) 01/22/20 Hepatitis C Antibody Non-reactive (Nonreactive) 01/22/20 Rubella IgG Antibody 155.3 IU/mL (0.0-9.0) H 01/22/20 RPR Nonreactive (Nonreactive) 01/22/20 HIV 1&2 Ab & HIV 1 Ag Non-reactive (Non-Reactiv) 01/22/20 Glucose 1 Hr 50 gm 155 mg/dL (85-140) H 05/02/20 Gest Glucose Tolerance mg/dL 05/13/20 VZV IgG Antibody 192.40 index 01/22/20 Ser , Semi-Qnt 692.60 mIU/mL 07/18/19 HCG, Qual Positive (Negative) H 11/27/19 Urine Opiates Screen Negative ng/mL (Negative) 01/22/20 Ur Barbiturates Screen Negative ng/mL (Negative) 01/22/20 Ur Phencyclidine Scrn Negative ng/mL (Negative) 01/22/20 Ur Amphetamines Screen Negative ng/mL (Negative) 01/22/20 U Benzodiazepines Scrn Negative ng/mL (Negative) 01/22/20 Urine Cocaine Screen Negative ng/mL (Negative) 01/22/20 U Marijuana (THC) Screen Negative ng/mL (Negative) 01/22/20 Micro Urine Specimen 01/22/20 Pap Smear Interpret See note 12/07/22 A&P Assessment and plan (1) 39 weeks gestation of : A couple of times during her , we discussed the risks and alternatives to repeat section. We discussed the possibility of a [place]. We discussed the risks of a section including the risk of bleeding, infection, and damage to intra-abdominal organs. Ultimately, she decided that if she did not go to labor by the time of our repeat section that she would proceed with a section. (2) History of : Attestations Medical Necessity Statement*: Routine and post care. Coding Level of Care Code Acute Code for Chg Fwd Diagnoses 39 weeks gestation of Z3A.39 History of Z98.891
[2024-01-18] MEDS: metoclopramide 5 mg/mL SDV 2 mL 10 MG IV (06:43)
[2024-01-18] MEDS: citric acid-sodium citrate 30 mL UDC PO (06:43)
[2024-01-18] MEDS: famotidine 20 mg/2 mL INJ IVP (06:43)
--- NOTE | 2024-01-18 07:07 | ANES.PREANE2 ---
Pre-Anesthetic Assessment Height/Weight: Height 1.52 m Weight 95.708 kg Temp Pulse Resp BP O2 Del Method 98.6 F 78 18 103/58 Room Air 01/18/24 05:22 01/18/24 05:44 01/18/24 05:22 01/18/24 05:44 01/18/24 05:26 Operation Date: 01/18/24 07:00 Proposed Procedures p Repeat Section(Not Applicable) - Romero George MD Last intake: Intake Last Liquid Date 01/17/24 Last Liquid Time 21:00 Last Solid Date 01/17/24 Last Solid Time 19:00 Exam alert, oriented x 3, clear to auscultation bilaterally and regular rate & rhythm Airway Submandibular: within normal limits Cervical ROM: within normal limits Mallampati: Class I Anesthetic Plan Anesthesia: Regional (specify below) Other: spinal discussed Risk of > 500 ml blood loss (7ml/kg in children): Yes, adequate IV access and fluids planned Medications/Allergies Home Medications Medication Instructions Recorded Confirmed Last Taken Type PNV #[id number] acid-dha 1 cap PO 1XD 01/18/24 01/18/24 01/17/24 History 0800 Allergies Allergy/AdvReac Type Severity Reaction Status Date / Time No Known Allergies Allergy Verified 01/18/24 06:10 [facility] Anesthesia Medical History 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 Performed by Dr. De Anda at [facility] in [place], [place]. Confirmed low transverse incision with 2 layer closure H/O dilation and curettage (03/28/19) Miscarriage at approximately 6 weeks gestation. Performed by Dr. Karlos De Anda at [facility] [place] [facility] in [place], [place]. Family History Family/Other Breast cancer Maternal great grandmother, 80's Grandfather Diabetes Maternal grandfather Father Hypertension Denies family history of Colon cancer Ovarian cancer Clotting disorder Heart disease Hyperlipidemia Anesthesia complication Bleeding disorder Uterine cancer Thyroid disease Stroke Social History Substance/Drug Use: never Female Reproductive History : 4 Data Anesthesia 01/18/24 05:45 Short CBC 01/18/24 Range/Units 05:45 WBC 9.90 (3.29-11.43) 10^3/uL Hgb 9.40 L (11.27-16.99) g/dL Hct 30.1 L (36-47) % MCV 83.4 L (85-98) fl Plt Count 186 (157-399) 10^3/cmm Neut % (Auto) 69.6 % Neut # (Auto) 6.89 (1.8-7.7) 10^3/uL Cardiac Studies: No Data to Display
[2024-01-18] MEDS: BUPivacaine 0.5% INJ 30 mL INJECTION (07:32)
--- NOTE | 2024-01-18 08:37 | PM.OP ---
Operative Report Date of procedure: January 18, 2024 Pre-op diagnosis: 28-year-old 4 para 1-0-2-1 at 39 weeks estimated gestational age with a history of a section presenting for a repeat Post-op diagnosis: Status post repeat section Procedure done: Repeat low-transverse section Specimens removed/disposition: 1. Female infant with Apgars of 10 and 10 and weight of 3115 grams Surgeon: Romero George MD Estimated blood loss (mL): 500 Complications: None Procedure: The patient was brought back to the operating room where she was prepped and draped in usual sterile fashion. Anesthesia was found to be adequate. A lower transverse skin incision was then made with a #10 blade. I then dissected down to the underlying subcutaneous tissue until arriving at the prerectal fascia. The fascia was then nicked with the scalpel bilaterally. The fascial incisions were then carried laterally with Fernandes scissors. Attention was then turned to the superior aspect of the incision which was grasped with kochers and tented up away from the underlying rectus abdominis muscles. The muscles were then dissected away from the fascia manually, and later with Fernandes scissors. Attention was then turned to the inferior aspect of the incision, and the fascia was dissected away from the underlying muscle in similar fashion. The rectus abdominis muscles were then spread manually. The peritoneum was entered manually. Excellent visualization of the uterus was noted. A lower transverse uterine incision was then made with a #10 blade. Upon arriving at the intrauterine cavity, the uterine incision was then extended manually. The infant was noted to be in vertex position. The baby was delivered without difficulty. After delivery of the head, the mouth and nose were suctioned at the site of the incision. There was no meconium. There was no nuchal cord. The baby was then completely delivered and placed on the abdomen. The cord was cut and clamped. The baby was then handed to the waiting nurse. The placenta was removed intact. The uterus was externalized. The intrauterine cavity was cleansed of any remaining debris. The uterine incision was reapproximated in 2 layers. The first layer was performed with 0 Vicryl in a running locked stitch. The second layer was an imbricating stitch also using 0 Vicryl. The uterus was replaced into the abdomen. The peritoneum was then irrigated with warm saline. I reexamined the uterine incision and found it to be hemostatic. The rectus abdominis muscles were then reapproximated using 0 Vicryl in a running stitch. The fascia was then reapproximated using 0 Vicryl in running stitch. The skin was reapproximated using marilyn. A sterile dressing was placed. All counts were correct x2. Both the mother and baby were in stable condition.
[2024-01-18] MEDS: dextrose 5%-lactated ringers 1,000 ML 125 ML IV (13:33)
[2024-01-18] MEDS: diphenhydrAMINE 50 mg/mL SDV 1mL 25 MG IVP (13:39)
--- NOTE | 2024-01-18 15:10 | ANE.PACU2 ---
Inpatient post-anesthesia follow up: Vital signs: Temperature 98.6 F Pulse Rate 106 Respiratory Rate 17 Blood Pressure 95/55 Pulse Oximetry 97 Oxygen Delivery Me thod Room Air Oxygen Flow Rate Fraction of Inspir ed Oxygen Hydration adequate: Yes Nausea and vomiting: No Mental status: Baseline Additional Comments: no apparent anesthetic complications noted
[2024-01-18 21:10] LABS: Hematocrit 28.9 % (36-47); Mean Corpuscular HGB Conc 32.2 g/dL (30-55); Mean Corpuscular Hemoglobin 26.8 pg (27-33); Mean Corpuscular Volume 83.3 fl (85-98); Mean Platelet Volume 11.1 fL (7.4-10.4); Platelet Count 158 10^3/cmm (157-399); Red Blood Count 3.47 10^6/uL (3.85-5.65); Red Cell Distribution Width 14.5 % (12.1-15.1); White Blood Count 10.27 10^3/uL (3.29-11.43)
[2024-01-19 04:07] VITALS: BP 115/75; PULSE 68; RESP 15
--- NOTE | 2024-01-19 08:01 | P.DS_ITS ---
Discharge Providers NURSING INFORMATICS ANALYST Date of Admission: 01/18/24 05:14 Date of Discharge: 01/19/24 Attending Provider at Admission: Romero George MD Attending Provider at Discharge: Romero George MD Diagnoses at Discharge Discharge Diagnosis (1) 39 weeks gestation of : Status: Acute (2) History of : Status: Acute Reason for Visit Reason for Visit: 01/28/24 Hospital Course Hospital Course The patient presented to the hospital for a repeat section. Her C- section was unremarkable. Her course was also unremarkable. She breast-fed well. Her pains been well-controlled. Her bleeding has been within normal limits. She has not passed gas yet, but she will not be discharged until she does pass gas. Information Peripartum Data: Infant Delivery Method: Physical Exam Narrative: She is in no acute distress Lungs are clear auscultation bilaterally Her heart has a regular rate and rhythm Her fundus is below the umbilicus and firm Her dressing is clean, dry and intact Her extremities have trace edema Urinary Catheter Management: Hall: Cath Placed During This Visit: yes, but has since been removed by the nurse Reason for Continuing Indwelling Catheter: Decision to DC Catheter Urinary Catheter Date of Insertion: 01/18/24 Urinary Catheter Time of Insertion: 07:20 Date Urinary Catheter Removed: 01/18/24 Time Urinary Catheter Discontinued: 22:03 History History History 3 Term 1 0 Miscarriages/Ectopic 2 Living Children 1 Discharge Data Studies Completed and Pending Laboratory Results WBC 10.27 10^3/uL (3.29-11.43) 01/18/24 20:57 RBC 3.47 10^6/uL (3.85-5.65) L 01/18/24 20:57 Hgb 9.30 g/dL (11.27-16.99) L 01/18/24 20:57 Hct 28.9 % (36-47) L 01/18/24 20:57 MCV 83.3 fl (85-98) L 01/18/24 20:57 MCH 26.8 pg (27-33) L 01/18/24 20:57 MCHC 32.2 g/dL (30-55) 01/18/24 20:57 RDW 14.5 % (12.1-15.1) 01/18/24 20:57 Plt Count 158 10^3/cmm (157-399) 01/18/24 20:57 MPV 11.1 fL (7.4-10.4) H 01/18/24 20:57 Neut % (Auto) 69.6 % 01/18/24 05:45 Lymph % (Auto) 21.2 % 01/18/24 05:45 Liberty % (Auto) 7.7 % 01/18/24 05:45 Eos % (Auto) 0.3 % 01/18/24 05:45 Baso % (Auto) 0.3 % 01/18/24 05:45 Neut # (Auto) 6.89 10^3/uL (1.8-7.7) 01/18/24 05:45 Lymph # (Auto) 2.1 10^3/uL (0.8-4.8) 01/18/24 05:45 Liberty # (Auto) 0.8 10^3/uL (0.2-0.9) 01/18/24 05:45 Eos # (Auto) 0.0 10^3/uL (0.0-0.8) 01/18/24 05:45 Baso # (Auto) 0.0 10^3/uL (0.0-0.1) 01/18/24 05:45 Nucleated RBC % (auto) 0 % 01/18/24 05:45 Nucleated RBCs # 0.0 /100WBC 01/18/24 05:45 Blood Type A Positive 01/18/24 05:45 Rho(D) Type Rh positive 01/18/24 05:45 Antibody Screen Negative 01/18/24 05:45 Vitals Last Vital Signs Temp 97.9 F 01/18/24 22:17 Pulse 68 01/19/24 04:07 Resp 15 01/19/24 04:07 BP 115/75 01/19/24 04:07 Pulse Ox 96 01/18/24 22:17 O2 Del Method Room Air 01/18/24 22:17 Results Labs OB ([facility]): Obstetrics US 11/01/23 Blood Type A Positive 01/18/24 Antibody Screen Negative 01/18/24 Hct 28.9 % (36-47) L 01/18/24 Hgb 9.30 g/dL (11.27-16.99) L 01/18/24 Rho(D) Type Rh positive 01/18/24 Plt Count 158 10^3/cmm (157-399) 01/18/24 Hep Bs Antigen Non-reactive (Nonreactive) 01/22/20 Hepatitis C Antibody Non-reactive (Nonreactive) 01/22/20 Rubella IgG Antibody 155.3 IU/mL (0.0-9.0) H 01/22/20 RPR Nonreactive (Nonreactive) 01/22/20 HIV 1&2 Ab & HIV 1 Ag Non-reactive (Non-Reactiv) 01/22/20 Glucose 1 Hr 50 gm 155 mg/dL (85-140) H 05/02/20 Gest Glucose Tolerance mg/dL 05/13/20 VZV IgG Antibody 192.40 index 01/22/20 Ser , Semi-Qnt 692.60 mIU/mL 07/18/19 HCG, Qual Positive (Negative) H 11/27/19 Urine Opiates Screen Negative ng/mL (Negative) 01/22/20 Ur Barbiturates Screen Negative ng/mL (Negative) 01/22/20 Ur Phencyclidine Scrn Negative ng/mL (Negative) 01/22/20 Ur Amphetamines Screen Negative ng/mL (Negative) 01/22/20 U Benzodiazepines Scrn Negative ng/mL (Negative) 01/22/20 Urine Cocaine Screen Negative ng/mL (Negative) 01/22/20 U Marijuana (THC) Screen Negative ng/mL (Negative) 01/22/20 Micro Urine Specimen 01/22/20 Pap Smear Interpret See note 12/07/22 Discharge Plan Discharge Patient Disposition: Home Condition: Stable Prescriptions: New ibuprofen 800 mg Tablet 800 mg PO TID Qty: 45 0RF hydrocodone-acetaminophen 5-325 mg Tablet 1 tab PO Q6H PRN (Reason: Moderate To Severe Pain) Qty: 28 0RF docusate sodium 100 mg Capsule 100 mg PO BID Qty: 14 0RF Continued PNV #[id number] acid-dha tablet 1 cap PO 1XD Discharge Orders: Discharge Order (Routine); Ordered 01/19/24 Ordered By: Romero George Referrals: Romero George MD [Physician] - 4-7 days Discharge Diet: Usual diet Discharge Activity: Limit activity as instructed Patient Instructions: Depression (DC), Preeclampsia During (DC), Hemorrhage (DC), OB Discharge Report, OB Food/Drug Interaction Guide, OB Care at Home, Opioid Safety, OB Vaginal Deliveries, Abnormal Bleeding Discharge Attestations NURSING INFORMATICS ANALYST Time Spent in Discharge Care*: less than 30 min Coding Level of Care Code Acute Code for Chg Fwd Diagnoses 39 weeks gestation of Z3A.39 History of Z98.891
[2024-01-19] MEDS: docusate sodium 100 mg Capsule PO (09:58)
[2024-01-19] MEDS: PRENATAL VIT NO.130/IRON/FOLIC 1 EACH TABLET PO (09:58)
[2024-01-19] MEDS: ferrous sulfate EC 325 mg Tablet PO (09:59)
[2024-01-19] MEDS: ibuprofen 800 mg tablet PO (09:59)
[2024-01-19 10:01] VITALS: BP 115/67; PULSE 90
[2024-01-19 14:59] VITALS: BP 116/71; PULSE 93
[2024-01-19 15:03] VITALS: TEMP 36.9
[2024-01-19 15:59] VITALS: BP 116/71; PULSE 93; RESP 17; TEMP 36.9
== END 2024-01-19 15:59 | disposition home or self-care (01) | DRG 788 ==
PROVIDERS: Admitting Provider Family Medicine; Visit Provider Family Medicine
PROC: 10D00Z1 Extraction of Products of Conception, Low, Open Approach (ICD-10-PCS; CPT 59514; principal; 2024-01-18 07:00)
DX: O34.211 Maternal care for low transverse scar from previous cesarean delivery (principal); N85.8 Other specified noninflammatory disorders of uterus; Z3A.39 39 weeks gestation of pregnancy; Z37.0 Single live birth
CPT/HCPCS: 36415; 51702; 59025; 59409; 85025; 85027; 86850; 86900; 96374; 96376; J0690; J1200; J1885; J2274; J2371; J2405; J2765; J3010; J3490; J7120; J7121